=== PATIENT | female | born 1945 | race Caucasian/White ===

== ENCOUNTER 2019-06-26 15:41 | Inpatient (IN) | payer MEDICARE, MEDICAID ==
[~2019-06-26] VITALS: Ht 162.6 cm; Wt 56.7 kg
[2019-06-26] MEDS ORDERED: MIRT30TA7 PO (15:55)
[2019-06-26] MEDS ORDERED: SIME125C81 PO (15:55)
[2019-06-26] MEDS ORDERED: TRIA15CR3 TP (15:55)
[2019-06-26] MEDS ORDERED: IBUP-1955 PO (15:55)
[2019-06-26] MEDS ORDERED: IBUP-23 PO (15:55)
[2019-06-26] MEDS ORDERED: SENN-168 PO (15:55)
[2019-06-26] MEDS ORDERED: AMLO10TA7 PO (15:55)
[2019-06-26] MEDS ORDERED: HYDR-3326 PO (15:55)
[2019-06-26 16:12] LABS: BASOPHILS % (AUTO) 0.3 % (0.0-2.0); EOSINOPHILS % (AUTO) 0.3 % (0.0-7.0); HEMATOCRIT 30.5 % (31.2-41.9); HEMOGLOBIN 10.4 g/dL (10.9-14.3); LYMPHOCYTES # (AUTO) 1.1 K/uL (20.0-40.0); LYMPHOCYTES % (AUTO) 5.8 % (20.5-51.5); MEAN CORPUSCULAR HEMOGLOBIN 29.2 uug (24.7-32.8); MEAN CORPUSCULAR HGB CONC 34 g/dL (32.3-35.6); MEAN CORPUSCULAR VOLUME 85.9 fL (75.5-95.3); MONOCYTES # (AUTO) 2.1 K/uL (2.0-10.0); MONOCYTES % (AUTO) 11.3 % (0.0-11.0); NEUTROPHILS # (AUTO) 14.9 K/uL (1.8-8.9); NEUTROPHILS % (AUTO) 82.3 % (38.5-71.5); PLATELET COUNT (AUTO) 256 K/uL (179-408); RED BLOOD CELL COUNT(AUTO) 3.55 MIL/uL (3.63-4.92); WHITE BLOOD COUNT (AUTO) 18.1 K/uL (3.8-11.8)
[2019-06-26 16:20] LABS: CREATININE 0.6 mg/dL (0.6-1.3); POTASSIUM 3.2 mmol/L (3.5-5.1)
[2019-06-26 16:26] LABS: BILIRUBIN,DIRECT 0.2 mg/dL (0.0-0.2); TOTAL PROTEIN, SERUM 6.7 g/dL (6.4-8.2)
[2019-06-26 18:17] LABS: *BILIRUBIN,URIN NEGATIVE (NEGATIVE); *CLARITY,URINE CLEAR (CLEAR); *COLOR,URINE YELLOW (YELLOW); *KETONES,URINE NEGATIVE (NEGATIVE); *UROBILINOGEN,URINE 0.2 E.U./dl (NORMAL); LEUKOCYTE ESTERASE ,URINE NEGATIVE (NEGATIVE); NITRITE, URINE NEGATIVE (NEGATIVE); PH,URINE 6.5 (5.0-8.0); UGLUCOSE NEGATIVE (NEGATIVE)
[2019-06-26 18:26] LABS: *BLOOD, URINE TRACE (NEGATIVE)
[2019-06-26 18:27] LABS: MUCUS,URINE FEW /LPF (0-FEW); RBC,URINE 0-3 /HPF (0-3); SQUAMOUS EPITHELIAL CELL,UR FEW /HPF (NONE SEEN); WBC,URINE 0-3 /HPF (0-3)
[2019-06-26 21:42] VITALS: BP 124/65
[2019-06-27] MEDS ORDERED: IBUP-1955 PO (00:24)
[2019-06-27] MEDS ORDERED: AMLO10TA7 PO (00:24)
[2019-06-27] MEDS ORDERED: HYDR-3326 PO (00:24)
[2019-06-27] MEDS ORDERED: IBUP-76 PO (00:24)
[2019-06-27] MEDS ORDERED: TRIA15CR3 TP (00:33)
[2019-06-27] MEDS ORDERED: SIME125C81 PO (00:33)
[2019-06-27] MEDS ORDERED: SENN-18 PO (00:33)
[2019-06-27] MEDS ORDERED: MIRT30TA7 PO (00:33)
[2019-06-27 04:43] VITALS: BP 139/63
[2019-06-27 06:05] LABS: BASOPHILS # (AUTO) 0.1 K/uL (0.0-8.0); BASOPHILS % (AUTO) 0.5 % (0.0-2.0); EOSINOPHILS # (AUTO) 0.1 K/uL (0.0-0.7); HEMATOCRIT 28.7 % (31.2-41.9); HEMOGLOBIN 10.2 g/dL (10.9-14.3); LYMPHOCYTES % (AUTO) 8.2 % (20.5-51.5); MEAN CORPUSCULAR HEMOGLOBIN 30.9 uug (24.7-32.8); MEAN CORPUSCULAR HGB CONC 36 g/dL (32.3-35.6); MEAN CORPUSCULAR VOLUME 86.7 fL (75.5-95.3); MONOCYTES # (AUTO) 1.6 K/uL (2.0-10.0); MONOCYTES % (AUTO) 12.7 % (0.0-11.0); NEUTROPHILS # (AUTO) 9.8 K/uL (1.8-8.9); NEUTROPHILS % (AUTO) 77.6 % (38.5-71.5); PLATELET COUNT (AUTO) 231 K/uL (179-408); RED BLOOD CELL COUNT(AUTO) 3.31 MIL/uL (3.63-4.92); WHITE BLOOD COUNT (AUTO) 12.6 K/uL (3.8-11.8)
[2019-06-27] MEDS: HYDROCODONE/APAP 5-325MG TABLET PO PRN (06:09)
[2019-06-27] MEDS ORDERED: IBUPROFEN 600 MG TABLET PO PRN (08:30)
[2019-06-27] MEDS ORDERED: IBUPROFEN 200 MG TABLET PO PRN (08:30)
[2019-06-27] MEDS ORDERED: HYDROCODONE/APAP 5-325MG TABLET PO PRN (08:30)
[2019-06-27] MEDS ORDERED: Medication Not On Formulary EA (Simethicone 125 MG) PO PRN (08:30)
[2019-06-27] MEDS ORDERED: SIMETHICONE 80 MG TAB.CHEW PO PRN (08:45)
[2019-06-27] MEDS ORDERED: TRIAMCINOLONE ACET 0.025% CREA 15 GM TUBE TP SCH (09:00)
[2019-06-27] MEDS: AMLODIPINE 10 MG TABLET PO SCH (09:28)
[2019-06-27 11:00] VITALS: BP 118/56
[2019-06-27] MEDS: POTASSIUM CHLORIDE 40 MEQ in IV D5/ 0.9% NACL 1,000 ML IV PRN (13:32)
[2019-06-27 15:00] VITALS: BP 106/43
[2019-06-27 20:00] VITALS: BP 125/56
[2019-06-27] MEDS: MIRTAZAPINE 15 MG TABLET PO SCH (20:51)
[2019-06-27] MEDS: SENNOSIDES 1 TABLET PO SCH (20:52)
[2019-06-28] MEDS: POTASSIUM CHLORIDE 40 MEQ in IV D5/ 0.9% NACL 1,000 ML IV PRN (02:48)
[2019-06-28 04:58] VITALS: BP 143/56
[2019-06-28 06:46] LABS: BASOPHILS # (AUTO) 0.1 K/uL (0.0-8.0); BASOPHILS % (AUTO) 0.6 % (0.0-2.0); EOSINOPHILS # (AUTO) 0.4 K/uL (0.0-0.7); EOSINOPHILS % (AUTO) 3.9 % (0.0-7.0); HEMATOCRIT 29.7 % (31.2-41.9); HEMOGLOBIN 10.1 g/dL (10.9-14.3); LYMPHOCYTES # (AUTO) 1.5 K/uL (20.0-40.0); LYMPHOCYTES % (AUTO) 13.6 % (20.5-51.5); MEAN CORPUSCULAR HEMOGLOBIN 29.8 uug (24.7-32.8); MEAN CORPUSCULAR HGB CONC 34 g/dL (32.3-35.6); MEAN CORPUSCULAR VOLUME 87.2 fL (75.5-95.3); MONOCYTES # (AUTO) 1.4 K/uL (2.0-10.0); MONOCYTES % (AUTO) 12.3 % (0.0-11.0); NEUTROPHILS # (AUTO) 7.7 K/uL (1.8-8.9); NEUTROPHILS % (AUTO) 69.6 % (38.5-71.5); PLATELET COUNT (AUTO) 223 K/uL (179-408); WHITE BLOOD COUNT (AUTO) 11.1 K/uL (3.8-11.8)
[2019-06-28 06:57] LABS: ALANINE AMINOTRANSFERASE 17 U/L (14-59); ALKALINE PHOSPHATASE 67 U/L (50-136); ASPARTATE AMINOTRANSFERASE 24 U/L (15-37); BILIRUBIN,TOTAL 0.6 mg/dL (0.2-1.0); CARBON DIOXIDE 25 mmol/L (21-32); CHLORIDE 105 mmol/L (98-107); CREATININE 0.5 mg/dL (0.6-1.3); GLUCOSE 103 mg/dL (74-106); MAGNESIUM 1.7 mg/dL (1.8-2.4); PHOSPHOROUS 2.7 mg/dL (2.5-4.9); POTASSIUM 3.3 mmol/L (3.5-5.1); UREA NITROGEN, BLOOD 6 mg/dL (7-18)
[2019-06-28] MEDS: ASPIRIN EC 81 MG TABLET.DR PO SCH (08:36)
[2019-06-28] MEDS: AMLODIPINE 10 MG TABLET PO SCH (08:39)
[2019-06-28 09:06] LABS: IRON, SERUM 20 ug/dL (50-175)
[2019-06-28] MEDS ORDERED: POTASSIUM CHLORIDE 20 MEQ TAB.PRT.SR PO ONE ×2 (09:15→09:45)
[2019-06-28] MEDS ORDERED: MAGNESIUM OXIDE 400 MG TABLET PO ONE (09:15)
[2019-06-28 09:22] LABS: CHOLESTEROL 130 mg/dL (<200); FERRITIN 112 ng/mL (8-252); HDL CHOLESTEROL 41 mg/dL (40-60); TRIGLYCERIDES 102 MG/DL (30-150)
[2019-06-28 11:31] VITALS: BP 144/60
[2019-06-28] MEDS ORDERED: Z GUARD REMEDY PASTE 57 GM TUBE TOP PRN (15:00)
[2019-06-28] MEDS: SOD FERRIC GLUC COMPLX/SUCROSE 125 MG in IV NORMAL SALINE 100 ML IV SCH (15:32)
[2019-06-28 16:00] VITALS: BP 123/58
[2019-06-28 20:00] VITALS: BP 150/66
[2019-06-28] MEDS: ATORVASTATIN 20 MG TABLET PO SCH (20:05)
[2019-06-28] MEDS: SENNOSIDES 1 TABLET PO SCH (20:05)
[2019-06-28] MEDS: MIRTAZAPINE 15 MG TABLET PO SCH (20:05)
[2019-06-28] MEDS: HYDROCODONE/APAP 5-325MG TABLET PO PRN (21:21)
[2019-06-29 04:47] VITALS: BP 157/65
[2019-06-29 06:36] LABS: BASOPHILS # (AUTO) 0.1 K/uL (0.0-8.0); BASOPHILS % (AUTO) 0.5 % (0.0-2.0); EOSINOPHILS # (AUTO) 0.4 K/uL (0.0-0.7); EOSINOPHILS % (AUTO) 2.7 % (0.0-7.0); HEMATOCRIT 31.9 % (31.2-41.9); HEMOGLOBIN 10.8 g/dL (10.9-14.3); LYMPHOCYTES # (AUTO) 1.6 K/uL (20.0-40.0); LYMPHOCYTES % (AUTO) 11.5 % (20.5-51.5); MEAN CORPUSCULAR HEMOGLOBIN 29.4 uug (24.7-32.8); MEAN CORPUSCULAR HGB CONC 34 g/dL (32.3-35.6); MEAN CORPUSCULAR VOLUME 86.7 fL (75.5-95.3); MONOCYTES # (AUTO) 1.7 K/uL (2.0-10.0); MONOCYTES % (AUTO) 11.5 % (0.0-11.0); NEUTROPHILS # (AUTO) 10.6 K/uL (1.8-8.9); NEUTROPHILS % (AUTO) 73.8 % (38.5-71.5); PLATELET COUNT (AUTO) 238 K/uL (179-408); RED BLOOD CELL COUNT(AUTO) 3.68 MIL/uL (3.63-4.92); WHITE BLOOD COUNT (AUTO) 14.3 K/uL (3.8-11.8)
[2019-06-29 07:00] LABS: ALANINE AMINOTRANSFERASE 19 U/L (14-59); ALKALINE PHOSPHATASE 76 U/L (50-136); ASPARTATE AMINOTRANSFERASE 22 U/L (15-37); CARBON DIOXIDE 25 mmol/L (21-32); CHLORIDE 99 mmol/L (98-107); CREATININE 0.5 mg/dL (0.6-1.3); GLUCOSE 95 mg/dL (74-106); MAGNESIUM 1.7 mg/dL (1.8-2.4); POTASSIUM 3.4 mmol/L (3.5-5.1); TOTAL PROTEIN, SERUM 6.6 g/dL (6.4-8.2); UREA NITROGEN, BLOOD 5 mg/dL (7-18)
[2019-06-29] MEDS: HYDROCODONE/APAP 5-325MG TABLET PO PRN ×2 (07:09→12:37)
[2019-06-29] MEDS: ASPIRIN EC 81 MG TABLET.DR PO SCH (08:54)
[2019-06-29] MEDS: AMLODIPINE 10 MG TABLET PO SCH (08:59)
[2019-06-29] MEDS ORDERED: CLOTRIMAZOLE 1% CREAM 30 GM TUBE TOP SCH (10:00)
[2019-06-29] MEDS ORDERED: SODIUM HYPOCHLORITE 0.125% 473 ML BOTTLE TP SCH (10:00)
[2019-06-29 11:38] VITALS: BP 109/58
[2019-06-29] MEDS ORDERED: POTASSIUM CHLORIDE 20 MEQ TAB.PRT.SR PO ONE (12:00)
[2019-06-29] MEDS: MAGNESIUM SULFATE/D5W 100 ML IV SCH ×2 (12:24→13:58)
[2019-06-29] MEDS: SOD FERRIC GLUC COMPLX/SUCROSE 125 MG in IV NORMAL SALINE 100 ML IV SCH (15:09)
[2019-06-29 15:51] VITALS: BP 145/81
[2019-06-29 15:55] VITALS: BP 136/54
[2019-06-29 20:31] VITALS: BP 151/67
[2019-06-29] MEDS: SENNOSIDES 1 TABLET PO SCH (21:00)
[2019-06-29] MEDS ORDERED: SULFAMETH/TRIMETH 800/160 MG TABLET PO SCH (21:00)
[2019-06-29] MEDS: MIRTAZAPINE 15 MG TABLET PO SCH (21:01)
[2019-06-29] MEDS: ATORVASTATIN 20 MG TABLET PO SCH (21:01)
[2019-06-30 05:55] VITALS: BP 149/54
== END 2019-06-30 07:40 | DRG 914 ==
LOC: ER 15:41 → MEDSURG3 21:25
PROVIDERS: ADMIT Internal Medicine Nephrology; ATTEND Internal Medicine
PROC: 0JBQ3ZZ Excision of Right Foot Subcutaneous Tissue and Fascia, Percutaneous Approach (ICD-10-PCS; principal; 2019-06-28)
PROC: 0HBRXZZ Excision of Toe Nail, External Approach (ICD-10-PCS; 2019-06-28)
DX: S09.90XA Unspecified injury of head, initial encounter (principal); E87.1 Hypo-osmolality and hyponatremia; L97.518 Non-pressure chronic ulcer of other part of right foot with other specified severity; L97.311 Non-pressure chronic ulcer of right ankle limited to breakdown of skin; E46 Unspecified protein-calorie malnutrition; L03.115 Cellulitis of right lower limb; W18.39XA Other fall on same level, initial encounter; Z91.81 History of falling; Y92.099 Unspecified place in other non-institutional residence as the place of occurrence of the external cause; E87.6 Hypokalemia; S92.301A Fracture of unspecified metatarsal bone(s), right foot, initial encounter for closed fracture; S60.221A Contusion of right hand, initial encounter; W19.XXXA Unspecified fall, initial encounter; Y92.89 Other specified places as the place of occurrence of the external cause; B35.1 Tinea unguium; M19.90 Unspecified osteoarthritis, unspecified site; M20.40 Other hammer toe(s) (acquired), unspecified foot; B35.3 Tinea pedis; I70.233 Atherosclerosis of native arteries of right leg with ulceration of ankle; I70.235 Atherosclerosis of native arteries of right leg with ulceration of other part of foot; I70.234 Atherosclerosis of native arteries of right leg with ulceration of heel and midfoot; F32.9 Major depressive disorder, single episode, unspecified; I10 Essential (primary) hypertension; Z86.73 Personal history of transient ischemic attack (TIA), and cerebral infarction without residual deficits; D50.0 Iron deficiency anemia secondary to blood loss (chronic)
CPT/HCPCS: 36415; 70030-TC; 70450; 72125; 73130; 73630; 83550; 83605; 83735; 84100; 85025; 85730; 87040; 87086; 93005; A4663; C1758; G0378; J2916; J3475; J3480; J3490; J7042

== ENCOUNTER 2020-06-15 14:04 | Inpatient (IN) | payer MEDICARE, OTHER ==
[~2020-06-15] VITALS: Ht 152.4 cm; Wt 49.9 kg
[~2020-06-15 14:04] MED LIST: AMLO10TA7 PO; HYDR-3326 PO; IBUP-1955 PO; IBUP-23 PO; MIRT30TA7 PO; SENN-261 PO; SIME125C81 PO; TRIA15CR3 TP
[2020-06-15] MEDS ORDERED: Z GUARD REMEDY PASTE 57 GM TUBE TOP PRN (17:45)
[2020-06-15] MEDS ORDERED: LISI10TA5 PO (17:54)
[2020-06-15] MEDS ORDERED: ATOR20TA PO (17:54)
[2020-06-15] MEDS ORDERED: QUET25TA PO (17:54)
[2020-06-15] MEDS ORDERED: IBUP-1955 PO (17:54)
[2020-06-15 18:00] VITALS: BP 114/82
[2020-06-15 20:00] VITALS: BP 153/50
[2020-06-15] MEDS: MIRTAZAPINE 15 MG TABLET PO SCH (20:37)
[2020-06-15] MEDS: ATORVASTATIN 20 MG TABLET PO SCH (20:37)
[2020-06-16 04:00] VITALS: BP 126/67
[2020-06-16] MEDS: AMLODIPINE 10 MG TABLET PO SCH (08:49)
[2020-06-16] MEDS: LISINOPRIL 10 MG TABLET PO SCH (08:49)
[2020-06-16] MEDS: QUETIAPINE FUMARATE 25 MG TABLET PO SCH ×2 (08:56→16:33)
[2020-06-16 09:16] VITALS: BP 145/61
[2020-06-16 15:43] VITALS: BP 123/80
[2020-06-16 20:00] VITALS: BP 116/88
[2020-06-16] MEDS: MIRTAZAPINE 15 MG TABLET PO SCH (20:08)
[2020-06-16] MEDS: ATORVASTATIN 20 MG TABLET PO SCH (20:08)
[2020-06-16] MEDS: MUPIROCIN 2% OINT 22 GM TUBE NS SCH (20:09)
[2020-06-16 20:49] VITALS: BP 116/88
[2020-06-17 06:04] VITALS: BP 138/69
[2020-06-17 07:01] LABS: BASOPHILS # (AUTO) 0.1 K/uL (0.0-8.0); BASOPHILS % (AUTO) 0.4 % (0.0-2.0); EOSINOPHILS # (AUTO) 0.1 K/uL (0.0-0.7); EOSINOPHILS % (AUTO) 0.3 % (0.0-7.0); HEMATOCRIT 34.4 % (31.2-41.9); LYMPHOCYTES # (AUTO) 0.8 K/uL (20.0-40.0); LYMPHOCYTES % (AUTO) 3.9 % (20.5-51.5); MEAN CORPUSCULAR HEMOGLOBIN 29.6 uug (24.7-32.8); MEAN CORPUSCULAR HGB CONC 35 g/dL (32.3-35.6); MONOCYTES # (AUTO) 3.2 K/uL (2.0-10.0); MONOCYTES % (AUTO) 15.7 % (0.0-11.0); NEUTROPHILS # (AUTO) 16.2 K/uL (1.8-8.9); NEUTROPHILS % (AUTO) 79.7 % (38.5-71.5); PLATELET COUNT (AUTO) 371 K/uL (179-408); RED BLOOD CELL COUNT(AUTO) 4.05 MIL/uL (3.63-4.92); WHITE BLOOD COUNT (AUTO) 20.3 K/uL (3.8-11.8)
[2020-06-17 07:11] LABS: CREATININE 0.7 mg/dL (0.6-1.3); MAGNESIUM 1.7 mg/dL (1.8-2.4); PHOSPHOROUS 3.6 mg/dL (2.5-4.9); POTASSIUM 3.4 mmol/L (3.5-5.1)
[2020-06-17 08:00] VITALS: BP 143/61
[2020-06-17] MEDS: AMLODIPINE 10 MG TABLET PO SCH (08:44)
[2020-06-17] MEDS: MUPIROCIN 2% OINT 22 GM TUBE NS SCH ×2 (09:00→21:01)
[2020-06-17] MEDS: QUETIAPINE FUMARATE 25 MG TABLET PO SCH ×2 (09:12→17:10)
[2020-06-17] MEDS: LISINOPRIL 10 MG TABLET PO SCH (09:13)
[2020-06-17] MEDS: CLOTRIMAZOLE 1% CREAM 30 GM TUBE TOP SCH (09:14)
[2020-06-17] MEDS: SODIUM HYPOCHLORITE 0.125% (QUARTER STRENGTH) 473 ML BOTTLE TP SCH (09:14)
[2020-06-17] MEDS: MAGNESIUM CHLORIDE 64 MG TABLET.SA PO SCH (09:28)
[2020-06-17] MEDS ORDERED: POTASSIUM CHLORIDE 20 MEQ TAB.PRT.SR PO ONE (12:30)
[2020-06-17 14:25] LABS: *BILIRUBIN,URIN NEGATIVE (NEGATIVE); *BLOOD, URINE 1+ (NEGATIVE); *CLARITY,URINE CLOUDY (CLEAR); *COLOR,URINE YELLOW (YELLOW); *KETONES,URINE NEGATIVE (NEGATIVE); LEUKOCYTE ESTERASE ,URINE 1+ (NEGATIVE); NITRITE, URINE POSITIVE (NEGATIVE); PH,URINE 6.5 (5.0-8.0); UGLUCOSE NEGATIVE (NEGATIVE)
[2020-06-17 16:19] VITALS: BP 113/53
[2020-06-17] MEDS ORDERED: PIPERACILLIN SODIUM/TAZOBACTAM 3.375 G in IV DEXTROSE 5% 50 ML IV SCH (16:45)
[2020-06-17] MEDS ORDERED: PIPERACILLIN SODIUM/TAZOBACTAM 3.375 G in IV DEXTROSE 5% 50 ML IV ONE (17:00)
[2020-06-17 18:17] LABS: LYMPHOCYTES % (MANUAL) 5 % (20-40); MONOCYTES % (MANUAL) 15 % (2-10); NEUTROPHILS % (MANUAL) 80 % (42-75)
[2020-06-17] MEDS: MIRTAZAPINE 15 MG TABLET PO SCH (21:01)
[2020-06-17] MEDS: ATORVASTATIN 20 MG TABLET PO SCH (21:01)
[2020-06-17] MEDS: PIPERACILLIN/TAZOBACTAM/D5W 3.375 G in IV DEXTROSE 5% 100 ML IV SCH (21:02)
[2020-06-17 21:18] VITALS: BP 120/67
[2020-06-18] MEDS: PIPERACILLIN/TAZOBACTAM/D5W 3.375 G in IV DEXTROSE 5% 100 ML IV SCH ×3 (05:06→21:13)
[2020-06-18 05:33] VITALS: BP 133/62
[2020-06-18 07:10] LABS: BASOPHILS # (AUTO) 0.1 K/uL (0.0-8.0); BASOPHILS % (AUTO) 0.3 % (0.0-2.0); EOSINOPHILS # (AUTO) 0.1 K/uL (0.0-0.7); EOSINOPHILS % (AUTO) 0.6 % (0.0-7.0); HEMATOCRIT 32.1 % (31.2-41.9); HEMOGLOBIN 11.1 g/dL (10.9-14.3); LYMPHOCYTES # (AUTO) 1.1 K/uL (20.0-40.0); LYMPHOCYTES % (AUTO) 6.4 % (20.5-51.5); MEAN CORPUSCULAR HEMOGLOBIN 29.3 uug (24.7-32.8); MEAN CORPUSCULAR HGB CONC 34 g/dL (32.3-35.6); MEAN CORPUSCULAR VOLUME 85.2 fL (75.5-95.3); MONOCYTES # (AUTO) 2.6 K/uL (2.0-10.0); MONOCYTES % (AUTO) 14.8 % (0.0-11.0); NEUTROPHILS # (AUTO) 13.5 K/uL (1.8-8.9); NEUTROPHILS % (AUTO) 77.9 % (38.5-71.5); PLATELET COUNT (AUTO) 357 K/uL (179-408); RED BLOOD CELL COUNT(AUTO) 3.77 MIL/uL (3.63-4.92); WHITE BLOOD COUNT (AUTO) 17.3 K/uL (3.8-11.8)
[2020-06-18 07:24] LABS: CREATININE 0.8 mg/dL (0.6-1.3); MAGNESIUM 1.9 mg/dL (1.8-2.4); PHOSPHOROUS 3.5 mg/dL (2.5-4.9); POTASSIUM 3.8 mmol/L (3.5-5.1)
[2020-06-18 08:00] VITALS: BP 113/42
[2020-06-18 08:41] LABS: BACTERIA,URINE MANY /HPF (NONE SEEN)
[2020-06-18 08:42] LABS: SQUAMOUS EPITHELIAL CELL,UR FEW /HPF (NONE SEEN); WBC,URINE TNTC /HPF (0-3)
[2020-06-18] MEDS: MAGNESIUM CHLORIDE 64 MG TABLET.SA PO SCH (08:46)
[2020-06-18] MEDS: LISINOPRIL 10 MG TABLET PO SCH (08:46)
[2020-06-18] MEDS: QUETIAPINE FUMARATE 25 MG TABLET PO SCH ×2 (08:46→17:04)
[2020-06-18] MEDS: AMLODIPINE 10 MG TABLET PO SCH (09:00)
[2020-06-18] MEDS: MUPIROCIN 2% OINT 22 GM TUBE NS SCH ×2 (09:03→20:06)
[2020-06-18 10:28] LABS: *RHEUMATOID FACTOR SCREEN NEG (NEGATIVE)
[2020-06-18] MEDS: CLOTRIMAZOLE 1% CREAM 30 GM TUBE TOP SCH (14:49)
[2020-06-18] MEDS: SODIUM HYPOCHLORITE 0.125% (QUARTER STRENGTH) 473 ML BOTTLE TP SCH (14:50)
[2020-06-18 16:00] VITALS: BP 129/89
[2020-06-18] MEDS: ATORVASTATIN 20 MG TABLET PO SCH (20:05)
[2020-06-18] MEDS: MIRTAZAPINE 15 MG TABLET PO SCH (20:05)
[2020-06-18 20:40] VITALS: BP 147/66
[2020-06-19] MEDS: PIPERACILLIN/TAZOBACTAM/D5W 3.375 G in IV DEXTROSE 5% 100 ML IV SCH ×3 (05:18→22:06)
[2020-06-19 06:18] VITALS: BP 139/76
[2020-06-19] MEDS: LISINOPRIL 10 MG TABLET PO SCH (08:15)
[2020-06-19] MEDS: QUETIAPINE FUMARATE 25 MG TABLET PO SCH ×2 (08:15→16:34)
[2020-06-19] MEDS: IBUPROFEN 600 MG TABLET PO PRN ×2 (08:15→17:49)
[2020-06-19] MEDS: AMLODIPINE 10 MG TABLET PO SCH (08:15)
[2020-06-19] MEDS: MAGNESIUM CHLORIDE 64 MG TABLET.SA PO SCH (08:15)
[2020-06-19] MEDS: SODIUM HYPOCHLORITE 0.125% (QUARTER STRENGTH) 473 ML BOTTLE TP SCH (08:16)
[2020-06-19] MEDS: MUPIROCIN 2% OINT 22 GM TUBE NS SCH ×2 (08:16→21:00)
[2020-06-19] MEDS: CLOTRIMAZOLE 1% CREAM 30 GM TUBE TOP SCH (08:16)
[2020-06-19 08:41] VITALS: BP 138/60
[2020-06-19 16:32] VITALS: BP 129/69
[2020-06-19 20:00] VITALS: BP 127/61
[2020-06-19] MEDS: MIRTAZAPINE 15 MG TABLET PO SCH (20:59)
[2020-06-19] MEDS: ATORVASTATIN 20 MG TABLET PO SCH (20:59)
[2020-06-20 04:49] VITALS: BP 155/59
[2020-06-20] MEDS: PIPERACILLIN/TAZOBACTAM/D5W 3.375 G in IV DEXTROSE 5% 100 ML IV SCH ×3 (05:12→21:15)
[2020-06-20 06:55] LABS: BASOPHILS # (AUTO) 0.1 K/uL (0.0-8.0); BASOPHILS % (AUTO) 0.6 % (0.0-2.0); EOSINOPHILS # (AUTO) 0.1 K/uL (0.0-0.7); EOSINOPHILS % (AUTO) 0.5 % (0.0-7.0); HEMATOCRIT 31.7 % (31.2-41.9); LYMPHOCYTES # (AUTO) 0.9 K/uL (20.0-40.0); LYMPHOCYTES % (AUTO) 5.7 % (20.5-51.5); MEAN CORPUSCULAR HEMOGLOBIN 29.3 uug (24.7-32.8); MEAN CORPUSCULAR HGB CONC 35 g/dL (32.3-35.6); MEAN CORPUSCULAR VOLUME 84.5 fL (75.5-95.3); MONOCYTES # (AUTO) 1.8 K/uL (2.0-10.0); MONOCYTES % (AUTO) 10.8 % (0.0-11.0); NEUTROPHILS # (AUTO) 13.4 K/uL (1.8-8.9); NEUTROPHILS % (AUTO) 82.4 % (38.5-71.5); PLATELET COUNT (AUTO) 356 K/uL (179-408); RED BLOOD CELL COUNT(AUTO) 3.76 MIL/uL (3.63-4.92); WHITE BLOOD COUNT (AUTO) 16.2 K/uL (3.8-11.8)
[2020-06-20 07:14] LABS: CREATININE 0.8 mg/dL (0.6-1.3); MAGNESIUM 1.8 mg/dL (1.8-2.4); PHOSPHOROUS 3.5 mg/dL (2.5-4.9)
[2020-06-20 08:00] VITALS: BP 152/68
[2020-06-20] MEDS: QUETIAPINE FUMARATE 25 MG TABLET PO SCH ×2 (08:20→16:50)
[2020-06-20] MEDS: MAGNESIUM CHLORIDE 64 MG TABLET.SA PO SCH (08:20)
[2020-06-20] MEDS: AMLODIPINE 10 MG TABLET PO SCH (08:21)
[2020-06-20] MEDS: LISINOPRIL 10 MG TABLET PO SCH (08:22)
[2020-06-20] MEDS: CLOTRIMAZOLE 1% CREAM 30 GM TUBE TOP SCH (08:23)
[2020-06-20] MEDS: SODIUM HYPOCHLORITE 0.125% (QUARTER STRENGTH) 473 ML BOTTLE TP SCH (08:23)
[2020-06-20] MEDS: MUPIROCIN 2% OINT 22 GM TUBE NS SCH ×2 (08:23→20:41)
[2020-06-20] MEDS: POTASSIUM CHLORIDE 20 MEQ TAB.PRT.SR PO SCH ×2 (10:20→11:27)
[2020-06-20 16:00] VITALS: BP 135/55
[2020-06-20 20:00] VITALS: BP 103/55
[2020-06-20] MEDS: MIRTAZAPINE 15 MG TABLET PO SCH (20:39)
[2020-06-20] MEDS: ATORVASTATIN 20 MG TABLET PO SCH (20:39)
[2020-06-21 04:00] VITALS: BP 112/52
[2020-06-21] MEDS: PIPERACILLIN/TAZOBACTAM/D5W 3.375 G in IV DEXTROSE 5% 100 ML IV SCH ×3 (06:02→21:21)
[2020-06-21 07:30] VITALS: BP 134/36
[2020-06-21] MEDS: MAGNESIUM CHLORIDE 64 MG TABLET.SA PO SCH (09:14)
[2020-06-21] MEDS: QUETIAPINE FUMARATE 25 MG TABLET PO SCH ×2 (09:14→17:07)
[2020-06-21] MEDS: AMLODIPINE 10 MG TABLET PO SCH (09:14)
[2020-06-21] MEDS: LISINOPRIL 10 MG TABLET PO SCH (09:14)
[2020-06-21] MEDS: SODIUM HYPOCHLORITE 0.125% (QUARTER STRENGTH) 473 ML BOTTLE TP SCH (09:17)
[2020-06-21] MEDS: CLOTRIMAZOLE 1% CREAM 30 GM TUBE TOP SCH (09:17)
[2020-06-21] MEDS: MUPIROCIN 2% OINT 22 GM TUBE NS SCH ×2 (09:18→20:56)
[2020-06-21 15:42] VITALS: BP 129/73
[2020-06-21 15:49] LABS: CREATININE 0.7 mg/dL (0.6-1.3); POTASSIUM 4.2 mmol/L (3.5-5.1)
[2020-06-21 18:09] LABS: *ANTI-SCLERODERMA-70 AB <0.2 AI (0.0-0.9); *SJOGREN'S ANTI-SS-A <0.2 AI (0.0-0.9); *SJOGREN'S ANTI-SS-B <0.2 AI (0.0-0.9); *SMITH ANTIBODIES <0.2 AI (0.0-0.9); ANTI-DNA(DS) AB, QN 1 IU/mL (0-9)
[2020-06-21 20:02] VITALS: BP 134/64
[2020-06-21] MEDS: MIRTAZAPINE 15 MG TABLET PO SCH (20:54)
[2020-06-21] MEDS: ATORVASTATIN 20 MG TABLET PO SCH (20:55)
[2020-06-22 04:53] VITALS: BP 158/57
[2020-06-22] MEDS: PIPERACILLIN/TAZOBACTAM/D5W 3.375 G in IV DEXTROSE 5% 100 ML IV SCH ×3 (05:09→21:22)
[2020-06-22 06:59] LABS: BASOPHILS # (AUTO) 0.1 K/uL (0.0-8.0); BASOPHILS % (AUTO) 1.1 % (0.0-2.0); EOSINOPHILS # (AUTO) 0.1 K/uL (0.0-0.7); EOSINOPHILS % (AUTO) 0.9 % (0.0-7.0); HEMOGLOBIN 10.6 g/dL (10.9-14.3); LYMPHOCYTES # (AUTO) 1.2 K/uL (20.0-40.0); LYMPHOCYTES % (AUTO) 9.5 % (20.5-51.5); MEAN CORPUSCULAR HEMOGLOBIN 29.1 uug (24.7-32.8); MEAN CORPUSCULAR HGB CONC 34 g/dL (32.3-35.6); MEAN CORPUSCULAR VOLUME 84.7 fL (75.5-95.3); MONOCYTES # (AUTO) 1.5 K/uL (2.0-10.0); MONOCYTES % (AUTO) 11.5 % (0.0-11.0); PLATELET COUNT (AUTO) 370 K/uL (179-408); RED BLOOD CELL COUNT(AUTO) 3.66 MIL/uL (3.63-4.92)
[2020-06-22 07:30] VITALS: BP 163/83
[2020-06-22] MEDS: QUETIAPINE FUMARATE 25 MG TABLET PO SCH ×2 (08:39→17:00)
[2020-06-22] MEDS: MAGNESIUM CHLORIDE 64 MG TABLET.SA PO SCH (08:39)
[2020-06-22] MEDS: LISINOPRIL 10 MG TABLET PO SCH (08:39)
[2020-06-22] MEDS: AMLODIPINE 10 MG TABLET PO SCH (08:40)
[2020-06-22] MEDS: MUPIROCIN 2% OINT 22 GM TUBE NS SCH ×2 (08:40→20:52)
[2020-06-22] MEDS: CLOTRIMAZOLE 1% CREAM 30 GM TUBE TOP SCH (08:41)
[2020-06-22] MEDS: SODIUM HYPOCHLORITE 0.125% (QUARTER STRENGTH) 473 ML BOTTLE TP SCH (08:41)
[2020-06-22 15:27] VITALS: BP 156/81
[2020-06-22 20:02] VITALS: BP 151/67
[2020-06-22] MEDS: MIRTAZAPINE 15 MG TABLET PO SCH (20:50)
[2020-06-22] MEDS: ATORVASTATIN 20 MG TABLET PO SCH (20:54)
[2020-06-23] LABS: BAND % (MANUAL) 1 % (0-10); LYMPHOCYTES % (MANUAL) 13 % (20-40); MONOCYTES % (MANUAL) 11 % (2-10); NEUTROPHILS % (MANUAL) 75 % (42-75)
[2020-06-23 04:34] VITALS: BP 150/60
[2020-06-23] MEDS: PIPERACILLIN/TAZOBACTAM/D5W 3.375 G in IV DEXTROSE 5% 100 ML IV SCH ×3 (05:09→21:01)
[2020-06-23 06:22] LABS: THYROID STIMULATING HORMONE 1.649 mIU/mL (0.358-3.740)
[2020-06-23 06:38] LABS: BILIRUBIN,DIRECT 0.2 mg/dL (0.0-0.2); BILIRUBIN,TOTAL 0.7 mg/dL (0.2-1.0); TOTAL PROTEIN, SERUM 6.8 g/dL (6.4-8.2)
[2020-06-23] MEDS: QUETIAPINE FUMARATE 25 MG TABLET PO SCH ×2 (08:18→17:16)
[2020-06-23] MEDS: AMLODIPINE 10 MG TABLET PO SCH (08:18)
[2020-06-23] MEDS: MAGNESIUM CHLORIDE 64 MG TABLET.SA PO SCH (08:19)
[2020-06-23] MEDS: LISINOPRIL 10 MG TABLET PO SCH (08:19)
[2020-06-23] MEDS: CLOTRIMAZOLE 1% CREAM 30 GM TUBE TOP SCH (08:20)
[2020-06-23] MEDS: MUPIROCIN 2% OINT 22 GM TUBE NS SCH (08:20)
[2020-06-23] MEDS: SODIUM HYPOCHLORITE 0.125% (QUARTER STRENGTH) 473 ML BOTTLE TP SCH (08:20)
[2020-06-23 08:27] VITALS: BP 137/60
[2020-06-23 15:24] VITALS: BP 139/63
[2020-06-23 20:29] VITALS: BP 154/62
[2020-06-23] MEDS: MIRTAZAPINE 15 MG TABLET PO SCH (20:30)
[2020-06-23] MEDS: ATORVASTATIN 20 MG TABLET PO SCH (20:31)
[2020-06-24] MEDS: PIPERACILLIN/TAZOBACTAM/D5W 3.375 G in IV DEXTROSE 5% 100 ML IV SCH ×3 (05:01→21:41)
[2020-06-24 05:39] VITALS: BP 152/52
[2020-06-24] MEDS: AMLODIPINE 10 MG TABLET PO SCH (09:00)
[2020-06-24] MEDS: LISINOPRIL 10 MG TABLET PO SCH (09:00)
[2020-06-24 09:10] VITALS: BP 150/69
[2020-06-24] MEDS: QUETIAPINE FUMARATE 25 MG TABLET PO SCH ×2 (09:51→17:36)
[2020-06-24] MEDS: MAGNESIUM CHLORIDE 64 MG TABLET.SA PO SCH (09:53)
[2020-06-24] MEDS: SODIUM HYPOCHLORITE 0.125% (QUARTER STRENGTH) 473 ML BOTTLE TP SCH (09:54)
[2020-06-24] MEDS: CLOTRIMAZOLE 1% CREAM 30 GM TUBE TOP SCH (09:54)
[2020-06-24 16:18] VITALS: BP 134/56
[2020-06-24 20:17] VITALS: BP 140/95
[2020-06-24] MEDS: ATORVASTATIN 20 MG TABLET PO SCH (21:16)
[2020-06-24] MEDS: MIRTAZAPINE 15 MG TABLET PO SCH (21:16)
[2020-06-25] MEDS: PIPERACILLIN/TAZOBACTAM/D5W 3.375 G in IV DEXTROSE 5% 100 ML IV SCH ×3 (05:01→22:04)
[2020-06-25 05:52] LABS: BASOPHILS # (AUTO) 0.2 K/uL (0.0-8.0); BASOPHILS % (AUTO) 1.1 % (0.0-2.0); EOSINOPHILS # (AUTO) 0.1 K/uL (0.0-0.7); EOSINOPHILS % (AUTO) 0.9 % (0.0-7.0); HEMATOCRIT 32.9 % (31.2-41.9); HEMOGLOBIN 11.2 g/dL (10.9-14.3); LYMPHOCYTES # (AUTO) 1.1 K/uL (20.0-40.0); LYMPHOCYTES % (AUTO) 8.1 % (20.5-51.5); MEAN CORPUSCULAR HEMOGLOBIN 28.8 uug (24.7-32.8); MEAN CORPUSCULAR HGB CONC 34 g/dL (32.3-35.6); MEAN CORPUSCULAR VOLUME 84.6 fL (75.5-95.3); MONOCYTES # (AUTO) 1.4 K/uL (2.0-10.0); NEUTROPHILS # (AUTO) 10.9 K/uL (1.8-8.9); NEUTROPHILS % (AUTO) 79.9 % (38.5-71.5); PLATELET COUNT (AUTO) 338 K/uL (179-408); WHITE BLOOD COUNT (AUTO) 13.6 K/uL (3.8-11.8)
[2020-06-25] MEDS: AMLODIPINE 10 MG TABLET PO SCH (05:54)
[2020-06-25 06:10] LABS: BILIRUBIN,TOTAL 0.8 mg/dL (0.2-1.0); CREATININE 0.7 mg/dL (0.6-1.3); TOTAL PROTEIN, SERUM 7.5 g/dL (6.4-8.2)
[2020-06-25 06:26] VITALS: BP 156/53
[2020-06-25 08:00] VITALS: BP 168/83
[2020-06-25] MEDS: LISINOPRIL 10 MG TABLET PO SCH (08:41)
[2020-06-25] MEDS: MAGNESIUM CHLORIDE 64 MG TABLET.SA PO SCH (08:42)
[2020-06-25] MEDS: CLOTRIMAZOLE 1% CREAM 30 GM TUBE TOP SCH (08:42)
[2020-06-25] MEDS: SODIUM HYPOCHLORITE 0.125% (QUARTER STRENGTH) 473 ML BOTTLE TP SCH (08:42)
[2020-06-25] MEDS: QUETIAPINE FUMARATE 25 MG TABLET PO SCH ×2 (08:42→17:46)
[2020-06-25] MEDS: IBUPROFEN 600 MG TABLET PO PRN (10:45)
[2020-06-25] MEDS: POTASSIUM CHLORIDE 20 MEQ TAB.PRT.SR PO SCH ×3 (10:47→15:02)
[2020-06-25] MEDS ORDERED: POTASSIUM CHLORIDE 20 MEQ TAB.PRT.SR PO SCH (15:00)
[2020-06-25 16:25] VITALS: BP 169/70
[2020-06-25] MEDS: MIRTAZAPINE 15 MG TABLET PO SCH (20:21)
[2020-06-25] MEDS: ATORVASTATIN 20 MG TABLET PO SCH (20:22)
[2020-06-25 20:25] VITALS: BP 165/78
[2020-06-26 05:27] VITALS: BP 147/86
[2020-06-26] MEDS: PIPERACILLIN/TAZOBACTAM/D5W 3.375 G in IV DEXTROSE 5% 100 ML IV SCH ×3 (05:59→22:26)
[2020-06-26 08:00] VITALS: BP 132/56
[2020-06-26] MEDS: QUETIAPINE FUMARATE 25 MG TABLET PO SCH ×2 (08:16→17:35)
[2020-06-26] MEDS: MAGNESIUM CHLORIDE 64 MG TABLET.SA PO SCH (08:17)
[2020-06-26] MEDS: SODIUM HYPOCHLORITE 0.125% (QUARTER STRENGTH) 473 ML BOTTLE TP SCH (08:17)
[2020-06-26] MEDS: CLOTRIMAZOLE 1% CREAM 30 GM TUBE TOP SCH (08:18)
[2020-06-26] MEDS: LISINOPRIL 10 MG TABLET PO SCH (08:19)
[2020-06-26] MEDS: AMLODIPINE 10 MG TABLET PO SCH (08:19)
[2020-06-26 10:59] LABS: *IMMUNOGLOBULIN G, SERUM 947 mg/dL (586-1602); IMMUNOGLOBULIN A, SERUM 132 mg/dL (64-422); IMMUNOGLOBULIN M, SERUM 59 mg/dL (26-217)
[2020-06-26 16:01] VITALS: BP 135/61
[2020-06-26 20:00] VITALS: BP 134/73
[2020-06-26] MEDS: ATORVASTATIN 20 MG TABLET PO SCH (20:47)
[2020-06-26] MEDS: MIRTAZAPINE 15 MG TABLET PO SCH (20:47)
[2020-06-27 04:00] VITALS: BP 129/68
[2020-06-27] MEDS: PIPERACILLIN/TAZOBACTAM/D5W 3.375 G in IV DEXTROSE 5% 100 ML IV SCH (06:48)
[2020-06-27 08:26] VITALS: BP 152/64
[2020-06-27] MEDS: QUETIAPINE FUMARATE 25 MG TABLET PO SCH ×2 (08:31→17:02)
[2020-06-27] MEDS: AMLODIPINE 10 MG TABLET PO SCH (08:31)
[2020-06-27] MEDS: MAGNESIUM CHLORIDE 64 MG TABLET.SA PO SCH (08:31)
[2020-06-27] MEDS: LISINOPRIL 10 MG TABLET PO SCH (08:31)
[2020-06-27] MEDS: SODIUM HYPOCHLORITE 0.125% (QUARTER STRENGTH) 473 ML BOTTLE TP SCH (08:32)
[2020-06-27] MEDS: CLOTRIMAZOLE 1% CREAM 30 GM TUBE TOP SCH (08:32)
[2020-06-27 15:47] VITALS: BP 150/74
[2020-06-27 19:52] VITALS: BP 139/70
[2020-06-27] MEDS: MIRTAZAPINE 15 MG TABLET PO SCH (20:44)
[2020-06-27] MEDS: ATORVASTATIN 20 MG TABLET PO SCH (20:44)
[2020-06-28 04:40] VITALS: BP 173/81
[2020-06-28 07:08] LABS: BASOPHILS # (AUTO) 0.1 K/uL (0.0-8.0); BASOPHILS % (AUTO) 1.2 % (0.0-2.0); EOSINOPHILS # (AUTO) 0.1 K/uL (0.0-0.7); EOSINOPHILS % (AUTO) 1.2 % (0.0-7.0); HEMATOCRIT 30.7 % (31.2-41.9); HEMOGLOBIN 10.6 g/dL (10.9-14.3); LYMPHOCYTES # (AUTO) 1.2 K/uL (20.0-40.0); LYMPHOCYTES % (AUTO) 10.9 % (20.5-51.5); MEAN CORPUSCULAR HEMOGLOBIN 29.1 uug (24.7-32.8); MEAN CORPUSCULAR HGB CONC 35 g/dL (32.3-35.6); MEAN CORPUSCULAR VOLUME 84.3 fL (75.5-95.3); MONOCYTES # (AUTO) 1.1 K/uL (2.0-10.0); MONOCYTES % (AUTO) 9.6 % (0.0-11.0); NEUTROPHILS # (AUTO) 8.5 K/uL (1.8-8.9); NEUTROPHILS % (AUTO) 77.1 % (38.5-71.5); PLATELET COUNT (AUTO) 319 K/uL (179-408); RED BLOOD CELL COUNT(AUTO) 3.65 MIL/uL (3.63-4.92); WHITE BLOOD COUNT (AUTO) 11.1 K/uL (3.8-11.8)
[2020-06-28 07:20] LABS: CREATININE 0.7 mg/dL (0.6-1.3); MAGNESIUM 1.8 mg/dL (1.8-2.4); PHOSPHOROUS 3.3 mg/dL (2.5-4.9); POTASSIUM 2.9 mmol/L (3.5-5.1)
[2020-06-28 08:00] VITALS: BP 135/45
[2020-06-28] MEDS: AMLODIPINE 10 MG TABLET PO SCH (08:09)
[2020-06-28] MEDS: LISINOPRIL 10 MG TABLET PO SCH (08:09)
[2020-06-28] MEDS: MAGNESIUM CHLORIDE 64 MG TABLET.SA PO SCH (08:10)
[2020-06-28] MEDS: CLOTRIMAZOLE 1% CREAM 30 GM TUBE TOP SCH (08:10)
[2020-06-28] MEDS: QUETIAPINE FUMARATE 25 MG TABLET PO SCH ×2 (08:10→17:18)
[2020-06-28] MEDS: SODIUM HYPOCHLORITE 0.125% (QUARTER STRENGTH) 473 ML BOTTLE TP SCH (08:11)
[2020-06-28] MEDS: POTASSIUM CHLORIDE 20 MEQ TAB.PRT.SR PO SCH ×3 (10:45→11:52)
[2020-06-28] MEDS: IBUPROFEN 600 MG TABLET PO PRN (10:58)
[2020-06-28] MEDS: POTASSIUM CHLORIDE 10 MEQ TAB.PRT.SR PO SCH (13:31)
[2020-06-28 15:08] LABS: A/G RATIO 0.9 (0.7-1.7); ALBUMIN 3.1 g/dL (2.9-4.4); ALPHA-1-GLOBULIN 0.5 g/dL (0.0-0.4); ALPHA-2-GLOBULIN 1.2 g/dL (0.4-1.0); BETA GLOBULIN 0.8 g/dL (0.7-1.3); GAMMA GLOBULIN 0.9 g/dL (0.4-1.8); GLOBULIN, TOTAL 3.4 g/dL (2.2-3.9); M-SPIKE Not Observed g/dL (Not Observed)
[2020-06-28 16:06] VITALS: BP 117/66
[2020-06-28 20:09] VITALS: BP 128/67
[2020-06-28] MEDS: MIRTAZAPINE 15 MG TABLET PO SCH (20:10)
[2020-06-28] MEDS: ATORVASTATIN 20 MG TABLET PO SCH (20:10)
[2020-06-29 04:09] VITALS: BP 122/53
[2020-06-29 07:26] LABS: BASOPHILS # (AUTO) 0.1 K/uL (0.0-8.0); BASOPHILS % (AUTO) 0.8 % (0.0-2.0); EOSINOPHILS # (AUTO) 0.1 K/uL (0.0-0.7); EOSINOPHILS % (AUTO) 0.9 % (0.0-7.0); HEMATOCRIT 31.1 % (31.2-41.9); HEMOGLOBIN 10.8 g/dL (10.9-14.3); LYMPHOCYTES # (AUTO) 1.2 K/uL (20.0-40.0); LYMPHOCYTES % (AUTO) 8.9 % (20.5-51.5); MEAN CORPUSCULAR HEMOGLOBIN 29.5 uug (24.7-32.8); MEAN CORPUSCULAR HGB CONC 35 g/dL (32.3-35.6); MONOCYTES # (AUTO) 1.2 K/uL (2.0-10.0); MONOCYTES % (AUTO) 9.6 % (0.0-11.0); NEUTROPHILS # (AUTO) 10.4 K/uL (1.8-8.9); NEUTROPHILS % (AUTO) 79.8 % (38.5-71.5); PLATELET COUNT (AUTO) 305 K/uL (179-408); RED BLOOD CELL COUNT(AUTO) 3.66 MIL/uL (3.63-4.92)
[2020-06-29 07:30] VITALS: BP 166/79
[2020-06-29 07:32] LABS: CREATININE 0.7 mg/dL (0.6-1.3); MAGNESIUM 2.1 mg/dL (1.8-2.4); PHOSPHOROUS 3.3 mg/dL (2.5-4.9); POTASSIUM 3.9 mmol/L (3.5-5.1)
[2020-06-29] MEDS: QUETIAPINE FUMARATE 25 MG TABLET PO SCH ×2 (09:21→17:59)
[2020-06-29] MEDS: POTASSIUM CHLORIDE 10 MEQ TAB.PRT.SR PO SCH (09:21)
[2020-06-29] MEDS: AMLODIPINE 10 MG TABLET PO SCH (09:21)
[2020-06-29] MEDS: MAGNESIUM CHLORIDE 64 MG TABLET.SA PO SCH (09:22)
[2020-06-29] MEDS: LISINOPRIL 10 MG TABLET PO SCH (09:22)
[2020-06-29] MEDS: CLOTRIMAZOLE 1% CREAM 30 GM TUBE TOP SCH (09:25)
[2020-06-29] MEDS: SODIUM HYPOCHLORITE 0.125% (QUARTER STRENGTH) 473 ML BOTTLE TP SCH (09:26)
[2020-06-29 15:01] VITALS: BP 135/62
[2020-06-29 20:09] VITALS: BP 119/68
[2020-06-29] MEDS: MIRTAZAPINE 15 MG TABLET PO SCH (21:02)
[2020-06-29] MEDS: ATORVASTATIN 20 MG TABLET PO SCH (21:02)
[2020-06-30 04:09] VITALS: BP 138/64
[2020-06-30 07:30] VITALS: BP 137/86
[2020-06-30] MEDS: MAGNESIUM CHLORIDE 64 MG TABLET.SA PO SCH (08:59)
[2020-06-30] MEDS: LISINOPRIL 10 MG TABLET PO SCH (08:59)
[2020-06-30] MEDS: POTASSIUM CHLORIDE 10 MEQ TAB.PRT.SR PO SCH (08:59)
[2020-06-30] MEDS: QUETIAPINE FUMARATE 25 MG TABLET PO SCH (08:59)
[2020-06-30] MEDS: AMLODIPINE 10 MG TABLET PO SCH (09:00)
[2020-06-30] MEDS: CLOTRIMAZOLE 1% CREAM 30 GM TUBE TOP SCH (09:02)
[2020-06-30] MEDS: SODIUM HYPOCHLORITE 0.125% (QUARTER STRENGTH) 473 ML BOTTLE TP SCH (09:04)
[2020-06-30 15:44] VITALS: BP 130/78
== END 2020-06-30 16:15 | disposition home health service (06) | DRG 92 ==
PROVIDERS: ADMIT Physical Medicine & Rehabilitation Pain Medicine; ATTEND Physical Medicine & Rehabilitation Pain Medicine
DX: G92 Toxic encephalopathy (principal); L97.919 Non-pressure chronic ulcer of unspecified part of right lower leg with unspecified severity; E87.1 Hypo-osmolality and hyponatremia; I87.311 Chronic venous hypertension (idiopathic) with ulcer of right lower extremity; R53.1 Weakness; B35.1 Tinea unguium; B35.3 Tinea pedis; I87.2 Venous insufficiency (chronic) (peripheral); N30.90 Cystitis, unspecified without hematuria; Z91.81 History of falling; M20.40 Other hammer toe(s) (acquired), unspecified foot; R29.6 Repeated falls; D64.9 Anemia, unspecified; D72.821 Monocytosis (symptomatic); E83.42 Hypomagnesemia; E87.6 Hypokalemia; F03.90 Unspecified dementia, unspecified severity, without behavioral disturbance, psychotic disturbance, mood disturbance, and anxiety; I10 Essential (primary) hypertension; M19.90 Unspecified osteoarthritis, unspecified site; R53.81 Other malaise; R60.9 Edema, unspecified
CPT/HCPCS: 36415; 70030-TC; 71045; 82784; 83550; 83615; 83735; 84100; 84155; 84165; 84443; 85025; 85651; 86038; 86334; 86430; 87040; 87086; A4663; C1758; J2543; J7050; J7060